=== PATIENT | female | born 1955 | race Caucasian/White ===

== ENCOUNTER 2016-10-29 09:10 | Emergency (ER) | payer OTHER ==
[~2016-10-29] VITALS: Ht 180.3 cm; Wt 82.0 kg
[~2016-10-29 09:10] MED LIST: AMO500 PO; METO25TA7 PO; PARO40TA48 PO
[2016-10-29 09:18] VITALS: Ht 180.3 cm; Wt 82.0 kg
[2016-10-29] MEDS ORDERED: SOD CHLORIDE 0.9% 500 ML IV ONE (10:30)
[2016-10-29] MEDS ORDERED: METO-448 PO (10:53)
[2016-10-29] MEDS ORDERED: IBUP400T22 PO (10:53)
[2016-10-29] MEDS ORDERED: PARO20TA58 PO (10:53)
[2016-10-29] MEDS ORDERED: SIMV20TA PO (10:54)
[2016-10-29] MEDS ORDERED: AZIT250T6 PO ×2 (10:55)
[2016-10-29] MEDS ORDERED: OMEP20CA16 PO (10:56)
[2016-10-29] MEDS ORDERED: CALC-143 PO (10:56)
--- NOTE | 2016-10-29 11:00 | RADRPT ---
PROCEDURE: XR Chest AP portable CLINICAL INDICATION: Sepsis TECHNIQUE: An AP portable radiograph of the chest was submitted. COMPARISON: None. FINDINGS: Support Hardware: None Cardiovascular: The cardiovascular silhouette appears unremarkable. Lung Riley: The lung riley appear clear with no nodule, alveolar infiltrate, for a interstitial pr ominence evident. Pleural Spaces: No pneumothorax or pleural effusion is identified. Osseous Structures: The osseous structures appear intact. Soft Tissues: Linear calcification is seen within the soft tissues at the left lateral chest. IMPRESSION: Unremarkable portable chest. Physician Wilda Date Time Electronically viewed and signed by Physician Wilda on 10/29/2016 11:00 RH/
[2016-10-29 11:51] LABS: ALBUMIN 4.1 g/dl (3.3-4.9); CHLORIDE 102 mmol/L (97-110)
[2016-10-29 11:52] LABS: SODIUM 141 mmol/L (135-144)
[2016-10-29 11:54] LABS: ALBUMIN/GLOBULIN RATIO 1.41; ANION GAP 16 (8-16); ASPARTATE AMINO TRANSFERASE 29 IU/L (15-46); BILIRUBIN,INDIRECT 0.2 mg/dl (0-1.1); BILIRUBIN,TOTAL 0.2 mg/dl (0.2-1.3); CARBON DIOXIDE 27 mmol/L (21-31); CREATININE 0.69 mg/dl (0.44-1.00); INR 0.93; PROTIME 12.5 Sec (12.2-14.2)
[2016-10-29 11:55] LABS: ALANINE AMINOTRANSFERASE 36 IU/L (13-69); ALKALINE PHOSPHATASE 64 IU/L (42-121); BLOOD UREA NITROGEN 15 mg/dl (7-20); CALCIUM 9.1 mg/dl (8.4-10.2); GLUCOSE 107 mg/dl (70-220); PARTIAL THROMBOPLASTIN TIME 28.3 Sec (25.0-35.0)
[2016-10-29 12:07] LABS: ADD UMIC YES; TROPONIN-I < 0.012 ng/ml (0.00-0.12); URINE BILIRUBIN (Dip) NEGATIVE (NEGATIVE); URINE BLOOD (Dip) 1+ (NEGATIVE); URINE COLOR LT. YELLOW (YELLOW); URINE GLUCOSE (Dip) NEGATIVE (NEGATIVE); URINE KETONES (Dip) NEGATIVE (NEGATIVE); URINE LEUKOCYTE ESTERASE (Dip) NEGATIVE (NEGATIVE); URINE NITRITE (Dip) NEGATIVE (NEGATIVE); URINE TOTAL PROTEIN (Dip) NEGATIVE (NEGATIVE); URINE UROBILINOGEN (Dip) 0.2 E.U./dL (0.1-1.0)
[2016-10-29 12:15] LABS: HEMATOCRIT 37.4 % (37.0-47.0); HEMOGLOBIN 12.5 g/dl (12.0-16.0); RED BLOOD COUNT 4.35 10^6/ul (4.20-5.40); UNCORRECTED WBC 7.2 10^3/ul (4.8-10.8); WHITE BLOOD COUNT 7.2 10^3/ul (4.8-10.8)
[2016-10-29 12:16] LABS: LYMPHOCYTES % 7.5 % (15.0-51.0); MEAN CORPUSCULAR HGB CONC 33.4 g/dl (32.0-37.0); MEAN PLATELET VOLUME 10.1 fl (7.4-10.4); MONOCYTES % 6.5 % (0.0-11.0); NEUTROPHILS % 85.7 % (39.0-77.0); PLATELET COUNT 169 10^3/UL (140-440); RED CELL DISTRIBUTION WIDTH 12.7 % (11.5-14.5)
[2016-10-29 12:27] LABS: PLATELET ESTIMATE PLT APPEAR ADEQUATE
--- NOTE | 2016-10-29 12:54 | ERD ---
ER Documentation Chief Complaint Date/Time DATE: 10/29/16 TIME: 12:51 Chief Complaint Fever, vomiting htn x 3 days HPI 61-year-old female presents to the emergency department with multiple complaints. Patient states for the last week or so she has had a flulike illness. She was started on azithromycin by her doctor. She is continued to have fevers chills myalgias and overall has not felt well. She has had nonbilious nonbloody emesis. She has been checking her blood pressure over the course of the last 3- 4 days and she has noticed that it has gone high and low intermittently. She became significantly concerned about her blood pressure going high and low and then came to the emergency department for evaluation. Patient reported no specific chest pain headache neurologic or cardiac symptoms associated with her high blood pressure. Her tertiary complaint is that she is having left breast pain. She has a history of breast cancer and is undergoing treatment for this. She states that she has an ongoing discomfort of her left breast. She reports no discharge drainage or redness in this area. ROS All systems reviewed and are negative except as per history of present illness. Medications Home Meds Reported Medications Calcium Citrate/Vitamin D (Citracal-Vitamin D 200 MG-250) 1 Each Tablet, 1 EACH PO DAILY, TAB 10/29/16 Omeprazole* (Omeprazole*) 20 Mg Capsule.dr, 20 MG PO DAILY, #30 CAP 10/29/16 Azithromycin* (Azithromycin*) 250 Mg Tablet, 250 MG PO DAILY, #4 TAB 10/29/16 Azithromycin* (Azithromycin*) 250 Mg Tablet, 500 MG PO ONCE, #1 TAB STARTED ON 10-26-16 FOR 5 DAYS 10/29/16 Simvastatin* (Zocor*) 20 Mg Tablet, 20 MG PO QHS, #30 TAB 10/29/16 Ibuprofen* (Motrin*) 400 Mg Tab, 400 MG PO BID Y for PAIN, TAB 10/29/16 Paroxetine Hcl* (Paxil*) 20 Mg Tablet, 20 MG PO DAILY, TAB 10/29/16 Metoprolol Tartrate* (Lopressor*) 25 Mg Tab, 25 MG PO BID, #60 TAB 10/29/16 Discontinued Reported Medications Amoxicillin* (Amoxicillin*) 500 Mg Cap, 500 MG PO Q8, CAP 05/28/14 Paroxetine Hcl* (Paxil*) 40 Mg Tablet, 40 MG PO DAILY, TAB 05/28/14 Metoprolol Succinate* (Toprol XL*) 25 Mg Tab.sr.24h, 25 MG PO DAILY, TAB 05/28/14 Allergies Allergies: Coded Allergies: acetaminophen (Verified Allergy, Unknown, 10/29/16) azithromycin (Verified Allergy, Unknown, 10/29/16) hydrocodone (Verified Allergy, Unknown, 10/29/16) PMhx/Soc History of Surgery: Yes Anesthesia Reaction: No Hx Neurological Disorder: No Hx Respiratory Disorders: No Hx Cardiac Disorders: No Hx Psychiatric Problems: No Hx Miscellaneous Medical Probl: Yes (DEPRESSION, HTN, breast cancer) Hx Alcohol Use: No Hx Substance Use: No Hx Tobacco Use: No Smoking Status: Never smoker FmHx Noncontributory for chief complaint Physical Exam Vitals Vital Signs Date Time Temp Pulse Resp B/P Pulse Ox O2 Delivery O2 Flow Rate FiO2 10/29/16 11:00 Nasal Cannula 10/29/16 11:00 102 18 128/81 99 Room Air 10/29/16 09:18 100.8 117 20 124/72 97 Physical Exam GENERAL: The patient is well developed and appropriate for usual state of health in no apparent distress HEENT: Pupils equal, round, and reactive to light. EOMI. There is no scleral icterus. NECK: C-spine is soft and supple, there is no meningismus. There is no cervical lymphadenopathy. LUNGS: Clear to auscultation bilaterally. There are no rales, wheezes or rhonchi. HEART: Regular rate and rhythm, no murmurs, clicks, rubs or gallops. ABDOMEN: Soft, non-tender, non-distended. There are bowel sounds in all four quadrants. No rebound or guarding. EXTREMITIES: There is no peripheral cyanosis or edema. No focal swelling or erythema. NEURO: The patient moves all four extremities with 5/5 strength. Cranial nerves II - XII are intact. Normal gait. Alert and oriented SKIN: There is no apparent rash or petechiae. The left breast, which is her area of concern was examined. There is an area of fullness and tenderness in the lateral aspect of the left breast but no evidence of significant infection or abscess. HEME/LYMPHATIC: There is no evidence of excessive bruising or lymphedema. PSYCHIATRIC: The patient does not appear anxious or depressed. Result Diagram: 10/29/16 1118 10/29/16 1118 Results 24 hrs Laboratory Tests Test 10/29/16 11:18 Activated Partial Thromboplast Time 28.3Sec Alanine Aminotransferase (ALT/SGPT) 36IU/L Albumin 4.1g/dl Albumin/Globulin Ratio 1.41 Alkaline Phosphatase 64IU/L Anion Gap 16 Aspartate Amino Transf (AST/SGOT) 29IU/L Basophils % 0.0% Blood Urea Nitrogen 15mg/dl Calcium Level 9.1mg/dl Carbon Dioxide Level 27mmol/L Chloride Level 102mmol/L Creatinine 0.69mg/dl Differential Comment AUTO w/SCAN Direct Bilirubin 0.00mg/dl Eosinophils % 0.0% Globulin 2.90g/dl Glucose Level 107mg/dl Hematocrit 37.4% Hemoglobin 12.5g/dl INR International Normalized Ratio 0.93 Indirect Bilirubin 0.2mg/dl Lactic Acid Level 1.3mmol/L Lymphocytes % 7.5% Mean Corpuscular Hemoglobin 28.0pg Mean Corpuscular Hemoglobin Concent 33.4g/dl Mean Corpuscular Volume 86.0fl Mean Platelet Volume 10.1fl Monocytes % 6.5% Neutrophils % 85.7% Nucleated Red Blood Cells % 0.0/100WBC Platelet Count 11548^3/UL Platelet Estimate PLT APPEAR ADEQUATE Potassium Level 4.0mmol/L Prothrombin Time 12.5Sec Prothrombin Time Ratio 1.0 Red Blood Count 4.3510^6/ul Red Cell Distribution Width 12.7% Sodium Level 141mmol/L Total Bilirubin 0.2mg/dl Total Protein 7.0g/dl Troponin I < 0.012ng/ml Urine Bilirubin NEGATIVE Urine Clarity CLEAR Urine Color LT. YELLOW Urine Glucose NEGATIVE% Urine Hemoglobin 1+ Urine Ketones NEGATIVE Urine Leukocyte Esterase NEGATIVE Urine Microscopic RBC Pending Urine Microscopic WBC Pending Urine Nitrite NEGATIVE Urine Specific [place] 1.015 Urine Total Protein NEGATIVE Urine Urobilinogen 0.2 E.U./dL Urine pH 7.5 White Blood Count 7.210^3/ul Current Medications Medications (Trade) Dose Ordered Sig/Henny Route PRN Reason Start Time Stop Time Status Last Admin Dose Admin Sodium Chloride (NS) 500 ml @ 500 mls/hr Q1H ONCE IV 10/29/16 10:30 10/29/16 11:29 DC 10/29/16 11:54 Procedures/MDM Patient was taken to a room, seen and evaluated. Comfort measures were initiated. Diagnostic tests were ordered and reviewed. 3 LEAD RHYTHM STRIP: Normal sinus rhythm without ectopy EK lead EKG reviewed by myself: Normal Sinus Rhythm Normal [place] and intervals No ST elevation, depression, or T wave inversion Impression: Normal EKG RADIOLOGY: reviewed with the radiologist REEVALUATION: Patient is remained stable and normotensive in the emergency room MEDICAL DECISION MAKIN-year-old female presents the emergency room with a number of nonspecific complaints. At this time, patient shows no evidence of active infection. She is Brandin on antibiotics but shows no evidence of pneumonia. Patient is no evidence serologically concerns and does not appear to be septic. Patient's blood pressures remained adequately controlled and she has no evidence of endorgan dysfunction. She is clinically well and appropriate for outpatient care. Departure Diagnosis: Primary Impression: Hypertension Condition: Stable Patient Instructions: High Blood Pressure (Hypertension) Additional Instructions: Please see your doctor in the next 1-2 days. Return for any problems or concerns MOI WARD Oct 29, 2016 12:54
[2016-10-29 13:08] VITALS: BP 130/77; PULSE 92; RESP 18; TEMP 98.1
[2016-10-29 13:08] LABS: URINE RBCS 0-2 /HPF (0)
== END 2016-10-29 13:11 | disposition home or self-care (01) ==
LOC: E/R 09:10
DX: I10 Essential (primary) hypertension (principal); R40.2252 Coma scale, best verbal response, oriented, at arrival to emergency department; R40.2362 Coma scale, best motor response, obeys commands, at arrival to emergency department; R40.2142 Coma scale, eyes open, spontaneous, at arrival to emergency department; Z85.3 Personal history of malignant neoplasm of breast
CPT/HCPCS: 71010; 80053; 81001; 81003; 83605; 84484; 85025; 85610; 85730; 87040; 87086; J7040; 36415; 93005

== ENCOUNTER 2019-02-24 12:01 | Emergency (ER) | payer OTHER ==
[~2019-02-24] VITALS: Ht 162.6 cm; Wt 77.4 kg
[~2019-02-24 12:01] MED LIST changes: -AMO500 PO; +AZIT250T13 PO; +CALC-143 PO; +IBUP-1561 PO; +METO-448 PO; -METO25TA7 PO; +OMEP20CA16 PO; +PARO-2 PO; -PARO40TA48 PO; +SIMV20TA PO
[2019-02-24 12:03] VITALS: Ht 162.6 cm; Wt 77.4 kg
[2019-02-24] MEDS ORDERED: HYDROmorphONE 1 MG/ML SYG IV STA (12:20)
[2019-02-24] MEDS ORDERED: SOD CHLORIDE 0.9% 1,000 ML IV STA (12:20)
[2019-02-24] MEDS ORDERED: ONDANSETRON 4 MG INJ IV STA (12:20)
[2019-02-24] MEDS ORDERED: SILVER SULFADIAZINE 1% 400 GM CR TOP ONE (12:30)
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
[2019-02-24] MEDS ORDERED: ERGO500013 PO (12:32)
[2019-02-24] MEDS ORDERED: IBUP-1541 PO (12:32)
[2019-02-24] MEDS ORDERED: SIMV40TA2 PO (12:33)
[2019-02-24] MEDS ORDERED: LETR2.5T PO (12:33)
[2019-02-24] MEDS ORDERED: METO25TA4 PO (12:34)
[2019-02-24] MEDS ORDERED: OMEP20CA16 PO (12:34)
[2019-02-24] MEDS ORDERED: PARO-37 PO (12:34)
[2019-02-24] MEDS ORDERED: SUMA100T4 PO (12:35)
[2019-02-24] MEDS ORDERED: SILVER SULFADIAZINE 1% 25 GM CR TOP ONE (13:00)
[2019-02-24 13:44] VITALS: BP 151/79; PULSE 66; RESP 16
== END 2019-02-24 13:45 | disposition home or self-care (01) ==
LOC: E/R 12:01
DX: T24.212A Burn of second degree of left thigh, initial encounter (principal); T21.22XA Burn of second degree of abdominal wall, initial encounter; I10 Essential (primary) hypertension; X11.8XXA Contact with other hot tap-water, initial encounter; Y92.9 Unspecified place or not applicable; Z85.3 Personal history of malignant neoplasm of breast
CPT/HCPCS: 16020; 96374; 96375; J1170; J2405; J7030; Z7502; Z7610